=== PATIENT | female | born 2000 | race Two or more races ===

== ENCOUNTER 2022-05-16 07:14 | Inpatient (IN) | payer OTHER ==
[~2022-05-16] VITALS: Ht 160 cm; Wt 48.2 kg
[2022-05-16] MEDS ORDERED: DexAMETHasone SOD PHOS 10MG/1ML VIAL INJ IV ONE (07:30)
[2022-05-16] MEDS ORDERED: ALBUTEROL SULF 2.5 MG/0.5ML(0.5%) NEB SOLN NEB ONE ×2 (07:30→10:15)
[2022-05-16] MEDS ORDERED: IPRATROPIUM BROM 0.5 MG/2.5ML INH SOL NEB ONE (07:30)
[2022-05-16 07:46] LABS: Basophils # (auto) 0 10 ^3/uL (0-0.2); Basophils % (auto) 0.2 % (0.0-2.0); Eosinophils # (auto) 1.3 10 ^3/uL (0-0.8); Eosinophils % (auto) 12.7 % (0.0-7.0); Hematocrit 41.9 % (36.0-46.0); Hemoglobin 14.3 g/dL (12.2-16.2); Lymphocytes # (auto) 2.1 10 ^3/uL (0.4-5.4); Lymphocytes % (auto) 20.3 % (10.0-50.0); Mean Corpuscular Hemoglobin 32.1 pg (28.0-32.0); Mean Corpuscular Hgb Conc. 34.2 g/dL (32.0-36.0); Mean Corpuscular Volume 94.1 fL (80.0-100.0); Monocytes # (auto) 1.1 10 ^3/uL (0-1.3); Monocytes % (auto) 10.5 % (0.0-12.0); Neutrophils # (auto) 5.8 10 ^3/uL (1.6-8.6); Neutrophils % (auto) 56.3 % (37.0-80.0); Nucleated Red Blood Cells % 0.2 %; Red Blood Cells 4.45 10^6/uL (4.0-5.20); Red Cell Distribution Width 12.9 % (11.8-14.3); White Blood Cell 10.3 10^3/uL (4.4-10.8)
[2022-05-16] MEDS: MAGNESIUM SULFATE 1GM/100ML 100 ML IV SCH ×2 (08:33→09:13)
[2022-05-16 08:56] LABS: Albumin 3.5 g/dL (3.4-5.0); Calcium 8.8 mg/dL (8.5-10.1)
[2022-05-16 08:59] LABS: BUN/Creatinine Ratio 16.4 (10.0-20.0); Bilirubin, Total 0.5 mg/dL (0.2-1.0); Total Protein 7.5 g/dL (6.4-8.2)
[2022-05-16] MEDS ORDERED: POTASSIUM CHL 20 Meq TABLET PO ONE (10:00)
[2022-05-16] MEDS ORDERED: ALBUTEROL SULF 2.5 MG/0.5ML(0.5%) NEB SOLN ONE (10:14)
[2022-05-16] MEDS ORDERED: LAMO25TA27 PO (11:13)
[2022-05-16] MEDS ORDERED: AMOX500T3 PO (11:13)
[2022-05-16] MEDS ORDERED: IBUP800T26 PO (11:13)
[2022-05-16] MEDS ORDERED: FLUO20CA90 PO (11:13)
[2022-05-16] MEDS ORDERED: MORPHINE SULFATE INJ 2 MG/ml SYRG IV PRN (11:15)
[2022-05-16] MEDS ORDERED: NITROGLYCERIN 0.4 MG SL TAB SL PRN (11:15)
[2022-05-16] MEDS: SODIUM CHLORIDE 0.9% 1,000 ML IV SCH (11:15)
[2022-05-16] MEDS ORDERED: ALBUTEROL SULF 2.5 MG/0.5ML(0.5%) NEB SOLN NEB PRN (11:15)
[2022-05-16] MEDS ORDERED: ACETAMINOPHEN 325 MG TAB PO PRN (11:15)
[2022-05-16 11:29] VITALS: BP 122/72
[2022-05-16 13:19] LABS: Urine Bacteria NONE SEEN /hpf (None Seen); Urine Blood Negative /uL (Negative); Urine Specific Gravity 1.001 (1.001-1.035); Urine WBC <1 /hpf (0 - 5)
[2022-05-16] MEDS: IPRATROPIUM BROM 0.5 MG/2.5ML INH SOL NEB SCH ×3 (13:48→23:58)
[2022-05-16] MEDS: ALBUTEROL SULF 2.5 MG/0.5ML(0.5%) NEB SOLN NEB SCH ×3 (13:49→23:58)
[2022-05-16] MEDS: methylPREDNISolone SOD SUCC 40 MG/ML VL IV SCH (21:46)
[2022-05-17] MEDS: ALBUTEROL SULF 2.5 MG/0.5ML(0.5%) NEB SOLN NEB SCH ×7 (03:01→22:17)
[2022-05-17] MEDS: IPRATROPIUM BROM 0.5 MG/2.5ML INH SOL NEB SCH ×7 (03:01→22:17)
[2022-05-17] MEDS: SODIUM CHLORIDE 0.9% 1,000 ML IV SCH ×2 (03:55→20:25)
[2022-05-17 05:51] LABS: Basophils # (auto) 0 10 ^3/uL (0-0.2); Basophils % (auto) 0.1 % (0.0-2.0); Eosinophils # (auto) 0 10 ^3/uL (0-0.8); Hematocrit 37.9 % (36.0-46.0); Lymphocytes # (auto) 0.5 10 ^3/uL (0.4-5.4); Lymphocytes % (auto) 7.9 % (10.0-50.0); Mean Corpuscular Hemoglobin 32.6 pg (28.0-32.0); Mean Corpuscular Hgb Conc. 34.3 g/dL (32.0-36.0); Mean Corpuscular Volume 95.2 fL (80.0-100.0); Monocytes # (auto) 0.2 10 ^3/uL (0-1.3); Monocytes % (auto) 2.5 % (0.0-12.0); Neutrophils # (auto) 5.9 10 ^3/uL (1.6-8.6); Neutrophils % (auto) 89.5 % (37.0-80.0); Red Blood Cells 3.98 10^6/uL (4.0-5.20); Red Cell Distribution Width 12.7 % (11.8-14.3); White Blood Cell 6.5 10^3/uL (4.4-10.8)
[2022-05-17 06:07] LABS: Potassium 4.3 mmol/L (3.5-5.1)
[2022-05-17 06:24] LABS: Albumin 3.9 g/dL (3.4-5.0); BUN/Creatinine Ratio 11.1 (10.0-20.0); Bilirubin, Total 0.3 mg/dL (0.2-1.0); Calcium 9.2 mg/dL (8.5-10.1); Total Protein 7.4 g/dL (6.4-8.2)
[2022-05-17] MEDS: FLUoxetine HCL 20 MG CAP PO SCH (06:49)
[2022-05-17] MEDS: lamoTRIgine 25 MG TAB PO SCH ×3 (09:40→10:00)
[2022-05-17] MEDS: methylPREDNISolone SOD SUCC 40 MG/ML VL IV SCH ×2 (09:40→22:00)
[2022-05-17 17:27] VITALS: BP_SYST 110; BP_DIAS 68; BP_DIAS 72
[2022-05-17 20:00] VITALS: BP 121/58
[2022-05-17 22:00] VITALS: BP 121/58
[2022-05-18] MEDS: ALBUTEROL SULF 2.5 MG/0.5ML(0.5%) NEB SOLN NEB SCH ×3 (01:54→09:39)
[2022-05-18] MEDS: IPRATROPIUM BROM 0.5 MG/2.5ML INH SOL NEB SCH ×3 (01:54→09:39)
[2022-05-18 05:00] VITALS: BP 110/72
[2022-05-18] MEDS: FLUoxetine HCL 20 MG CAP PO SCH (06:33)
[2022-05-18 07:34] VITALS: BP 117/64
[2022-05-18 09:00] VITALS: BP 124/77
[2022-05-18] MEDS: methylPREDNISolone SOD SUCC 40 MG/ML VL IV SCH (10:00)
[2022-05-18] MEDS: lamoTRIgine 25 MG TAB PO SCH (10:00)
[2022-05-18] MEDS ORDERED: PRED20TA2 PO (10:04)
[2022-05-18 11:00] VITALS: BP 110/72
== END 2022-05-18 12:05 | disposition home or self-care (01) | DRG 203 ==
LOC: ER 07:14 → TELE 11:11 → TELE-CENTR 05-17 17:18
PROVIDERS: ADMIT Nurse Practitioner Family; ATTEND Internal Medicine Pulmonary Disease
PROC: 5A09357 Assistance with Respiratory Ventilation, Less than 24 Consecutive Hours, Continuous Positive Airway Pressure (ICD-10-PCS; principal; 2022-05-16)
DX: J45.902 Unspecified asthma with status asthmaticus (principal); E87.6 Hypokalemia; Z20.822 Contact with and (suspected) exposure to COVID-19
CPT/HCPCS: 36415; 36600; 71045; 80053; 81001; 82805; 84132; 85025; 87426; 93005; 94640; 94644; 94660; 96365; 96375; 99291; G0378; J1100